=== PATIENT | female | born 1995 | race Caucasian/White ===

== ENCOUNTER 2016-12-27 21:05 | Emergency (ER) | payer OTHER ==
[~2016-12-27] VITALS: Ht 167.6 cm; Wt 90.0 kg
[2016-12-27 23:04] VITALS: BP 127/77
== END 2016-12-27 23:06 | disposition home or self-care (01) ==
LOC: EMS 21:11
DX: L50.9 Urticaria, unspecified (principal)
CPT/HCPCS: 99283